=== PATIENT | male | born 1985 | race African-American/Black ===

== ENCOUNTER 2024-04-05 15:06 | Emergency (ER) | payer OTHER ==
[~2024-04-05] VITALS: Ht 175.3 cm; Wt 65.0 kg
[2024-04-05 15:17] VITALS: BP 149/93; PULSE 78; RESP 16; TEMP 98; O2SAT 99
[2024-04-05] MEDS ORDERED: CETI-450 PO (17:36)
[2024-04-05] MEDS ORDERED: HYDR30CR39 TP (17:36)
== END 2024-04-05 17:50 | disposition home or self-care (01) ==
LOC: EMS 15:06
DX: R21 Rash and other nonspecific skin eruption (principal)
CPT/HCPCS: 99282; Z7502